=== PATIENT | male | born 1985 | race Asian ===

== ENCOUNTER → 2016-08-29 | Outpatient (CLI) | payer OTHER ==
--- NOTE | 2016-08-29 16:56 | DX ---
Left Second Toe, 3 Views, at 3:55 p.m. Clinical History: 30-year-old male with pain at the distal tip of the left second toe for 6 months. R ule out mass. Comparison Study: None. Findings: Bone mineralization is preserved. There appears be some mild soft tissue swelling associate d with the distal portion of the second toe. There is no fracture, dislocation, periostitis, joint ma lalignment, or soft tissue calcification. If there is further clinical concern regarding a localized mass, MR imaging could be considered. 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 The tarsome tatarsal alignment is anatomic. Impression: There appears to be some soft tissue swelling over the distal portion of the second toe, but there is no underlying osseous abnormality, periostitis, or soft tissue calcification.
== END ==
LOC: BMCIMAGING 15:56
PROVIDERS: ATTEND Internal Medicine
DX: M79.89 Other specified soft tissue disorders (principal)